=== PATIENT | female | born 1965 | race American Indian/Alaskan Native ===

== ENCOUNTER 2017-08-06 23:58 | Emergency (ER) | payer OTHER ==
--- NOTE | 2017-08-07 01:20 | XRay Report ---
FINAL REPORT EXAM: XR FEMUR 2+V LT HISTORY: fall with pain TECHNIQUE: Four views of the left femur were submitted. FINDINGS: There is no evidence of fracture or dislocation. The hip and knee joints appear well maintained. The soft tissues are unremarkable. IMPRESSION: No evidence of acute injury.
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
[2017-08-07] MEDS ORDERED: TYLENOL PO ONE (05:50)
[2017-08-07] MEDS ORDERED: BOOSTRIX IM ONE (05:51)
[2017-08-07 06:35] VITALS: BP 108/52
== END 2017-08-07 06:16 | disposition home or self-care (01) ==
LOC: ED 23:58
DX: S73.102A Unspecified sprain of left hip, initial encounter (principal); E11.9 Type 2 diabetes mellitus without complications; W18.30XA Fall on same level, unspecified, initial encounter; Y93.89 Activity, other specified; Y92.481 Parking lot as the place of occurrence of the external cause; Y99.8 Other external cause status
CPT/HCPCS: 90471; 90715; 99284

== ENCOUNTER 2018-02-25 17:46 | Emergency (ER) | payer OTHER ==
[2018-02-25 17:53] VITALS: BP 150/72
[2018-02-25] MEDS ORDERED: MOTRIN PO ONE (20:15)
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
--- NOTE | 2018-02-25 21:46 | XRay Report ---
FINAL REPORT PROCEDURE: XR HUMERUS 2+V LT TECHNIQUE: LEFT humerus radiographs, AP and lateral views. HISTORY: left arm pain COMPARISON: No prior studies are available for comparison. FINDINGS: Fracture (s) and/or Dislocation(s): None . Joint space(s): Normal. Soft tissues: Normal. Bone mineralization: Normal. Foreign bodies: None. IMPRESSION: Normal Examination.
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
== END 2018-02-25 22:28 | disposition home or self-care (01) ==
LOC: ED 17:46
DX: S46.911A Strain of unspecified muscle, fascia and tendon at shoulder and upper arm level, right arm, initial encounter (principal); S46.912A Strain of unspecified muscle, fascia and tendon at shoulder and upper arm level, left arm, initial encounter; S13.4XXA Sprain of ligaments of cervical spine, initial encounter; E11.9 Type 2 diabetes mellitus without complications; Z86.2 Personal history of diseases of the blood and blood-forming organs and certain disorders involving the immune mechanism; V89.2XXA Person injured in unspecified motor-vehicle accident, traffic, initial encounter; Y93.89 Activity, other specified; Y92.488 Other paved roadways as the place of occurrence of the external cause; Y99.8 Other external cause status
CPT/HCPCS: 72040; 99283

== ENCOUNTER 2019-03-17 10:14 | Emergency (ER) | payer OTHER ==
[2019-03-17 10:21] VITALS: BP 132/74
[2019-03-17] MEDS ORDERED: LIDOCAINE 2% UROJECT 10 ML JELLY UR ONE (12:37)
--- NOTE | 2019-03-17 12:38 | Emergency Department Report ---
ED Female HPI - General Chief complaint: Urogenital-Female Stated complaint: LFT SIDE VAGINAL CYST/BOIL/PAIN Time Seen by Provider: 03/17/19 11:29 Source: patient Mode of arrival: Ambulatory Limitations: No Limitations - History of Present Illness Initial comments: This is a 54-year-old -[place] female who presents to the emergency room with the painful abscess to left labia for 5 days. Patient states she is doing warm soaks with no improvement of symptoms. She denies drainage, fever, chills, vaginal discharge, pelvic pain, urinary frequency, urgency, dysuria, or hematuria. MD Complaint: other (abscess of left labia) Onset/Timin -: days(s) Location: labia Severity: severe Severity scale (0 -10): 10 Quality: aching Consistency: constant Improves with: none Worsens with: other (sitting) Are you Now?: No Associated Symptoms: denies other symptoms - Related Data Sexually active: No Previous Rx's Medication Instructions Recorded Last Taken Type Acetaminophen [Acetaminophen TAB] 500 mg PO Q6HR PRN #20 tablet 08/07/17 Unknown Rx Bacitracin Zinc Oint [Antibiotic 1 applicatio TP BID #1 tube 08/07/17 Unknown Rx Oint] Acetaminophen 500 mg PO Q8H PRN #20 tablet 02/25/18 Unknown Rx Cyclobenzaprine [Flexeril] 10 mg PO QHS PRN #10 tablet 02/25/18 Unknown Rx Ibuprofen [Motrin 800 MG tab] 800 mg PO Q8HR PRN #20 tablet 03/17/19 Unknown Rx Sulfamethoxazole/Trimethoprim 1 each PO BID #14 tablet 03/17/19 Unknown Rx [Bactrim DS TAB] traMADol [Ultram 50 MG tab] 50 mg PO Q6HR PRN #10 tablet 03/17/19 Unknown Rx Allergies Allergy/AdvReac Type Severity Reaction Status Date / Time No Known Allergies Allergy Verified 02/25/18 17:51 ED Review of Systems ROS: Stated complaint: LFT SIDE VAGINAL CYST/BOIL/PAIN Other details as noted in HPI Constitutional: denies: chills, fever Respiratory: denies: cough, shortness of breath, wheezing Cardiovascular: denies: chest pain, palpitations Gastrointestinal: denies: abdominal pain, nausea, diarrhea Genitourinary: denies: urgency, dysuria, discharge Skin: lesions (painful abscess of left labia). denies: rash Neurological: denies: headache, weakness, paresthesias Psychiatric: denies: anxiety, depression ED Past Medical Hx - Past Medical History Previous Medical History?: No Hx Diabetes: Yes ([facility] diabetes) Additional medical history: aniemia - Surgical History Hx Appendectomy: Yes Additional Surgical History: utrine embolzation - Social History Smoking Status: Never Smoker Substance Use Type: None - Medications Home Medications: Home Medications Medication Instructions Recorded Confirmed Last Taken Type Acetaminophen [Acetaminophen TAB] 500 mg PO Q6HR PRN #20 tablet 08/07/17 Unknown Rx Bacitracin Zinc Oint [Antibiotic 1 applicatio TP BID #1 tube 08/07/17 Unknown Rx Oint] Acetaminophen 500 mg PO Q8H PRN #20 tablet 02/25/18 Unknown Rx Cyclobenzaprine [Flexeril] 10 mg PO QHS PRN #10 tablet 02/25/18 Unknown Rx Ibuprofen [Motrin 800 MG tab] 800 mg PO Q8HR PRN #20 tablet 03/17/19 Unknown Rx Sulfamethoxazole/Trimethoprim 1 each PO BID #14 tablet 03/17/19 Unknown Rx [Bactrim DS TAB] traMADol [Ultram 50 MG tab] 50 mg PO Q6HR PRN #10 tablet 03/17/19 Unknown Rx ED Physical Exam - General Limitations: No Limitations General appearance: alert, in no apparent distress, obese - Respiratory Respiratory exam: Present: normal lung sounds bilaterally. Absent: respiratory distress - Cardiovascular Cardiovascular Exam: Present: regular rate, normal rhythm. Absent: systolic murmur, diastolic murmur, rubs, gallop - GI/Abdominal GI/Abdominal exam: Present: soft, normal bowel sounds. Absent: distended, tenderness, guarding, rebound, rigid - External exam: Present: lesions (firm erythematous swelling at vaginal introitus, at 5:00, tenderness). Absent: bleeding - Neurological Exam Neurological exam: Present: alert, oriented X3 - Psychiatric Psychiatric exam: Present: normal affect, normal mood - Skin Skin exam: Present: warm, dry, intact, normal color. Absent: rash ED Course Vital Signs 03/17/19 10:19 Temperature 98.1 F Pulse Rate 96 H Respiratory 20 Rate Blood Pressure 132/74 O2 Sat by Pulse 98 Oximetry - I & D Left Vagina Type of Procedure: Simple Site: left labia majora Blade Size: 11 I & D Procedure: betadine prep, sterile drapes applied, sterile dressing applied Progress: The area was prepared and draped in the usual, sterile manner. The site was anesthetized with 2% lidocaine without epinephrine. A linear incision along the local skin lines was made and the purulent material expressed. The abcess was explored thoroughly and sequestered pockets were opened. Bleeding was minimal. Packing: idodoform Followup: The patient tolerated the procedure well without complications. Standard post-procedure care was explained and return precautions are given. ED Medical Decision Making - Medical Decision Making Patient is stable and examined by me. Denies prior history of Bartholin abscess or cyst. No acute signs of distress noted. I&D refer to note. Discussed plan to start bactrim DS, tramadol, and ibuprofen with patient. Educated patient on follow up plan to have packing removed and wound reassessed in 2-3 days. Patient agrees to ED plan of care. Discharged home and follow up with PCP in 2-3 days. Critical care attestation.: If time is entered above; I have spent that time in minutes in the direct care of this critically ill patient, excluding procedure time. ED Disposition Clinical Impression: Abscess of Bartholin's gland Disposition: TO HOME OR SELFCARE Is pt being admited?: No Condition: Stable Instructions: Abscess (ED), Incision and Drainage (ED) Additional Instructions: Keep packing in place for 2-3 days. Return to ER or f/u with PCP to have packing removed and wound reassessed. Complete full round of bactrim DS antibiotic as prescribed. Follow up with PCP or ER in 2-3 days. Return to ER if foul smelling discharge, swelling, or severe pain to wound. Prescriptions: Sulfamethoxazole/Trimethoprim [Bactrim DS TAB] 1 each PO BID #14 tablet Ibuprofen [Motrin 800 MG tab] 800 mg PO Q8HR PRN #20 tablet PRN Reason: Pain , Severe (7-10) traMADol [Ultram 50 MG tab] 50 mg PO Q6HR PRN #10 tablet PRN Reason: Pain Referrals: ROLDAN BENITEZ MD [Primary Care Provider] - 3-5 Days [facility] [Outside] - 3-5 Days [facility] [Outside] - 3-[address] [facility] [Outside] - 3-5 Days Forms: Work/School Release Form(ED) Time of Disposition: 14:31
[2019-03-17] MEDS ORDERED: LIDOCAINE (1%) 10 MG/1 ML VIAL 20 ML MDV INFILTRATI ONE (12:53)
== END 2019-03-17 14:37 | disposition home or self-care (01) ==
LOC: ED 10:14
DX: N75.1 Abscess of Bartholin's gland (principal); E11.9 Type 2 diabetes mellitus without complications; Z90.89 Acquired absence of other organs

== ENCOUNTER 2019-03-20 14:25 | Emergency (ER) | payer SELFPAY ==
--- NOTE | 2019-03-20 14:41 | Emergency Department Report ---
Blank Doc - Documentation Documentation: 54-year-old female that presents with bartholin abscess packing removal. This initial assessment/diagnostic orders/clinical plan/treatment(s) is/are subject to change based on patient's health status, clinical progression and re- assessment by fellow clinical providers in the ED. Further treatment and workup at subsequent clinical providers discretion. Patient/guardians urged not to elope from the ED as their condition may be serious if not clinically assessed and managed. Initial orders include: 1- Patient sent to [facility] for further evaluation and treatment
[2019-03-20 14:44] VITALS: BP 128/70
--- NOTE | 2019-03-20 15:48 | Emergency Department Report ---
ED Recheck HPI - General Chief Complaint: Laceration/Recheck/Suture Stated Complaint: PACKING REMOVAL Time Seen by Provider: 03/20/19 14:40 Source: patient Mode of arrival: Ambulatory Limitations: No Limitations - History of Present Illness MD Complaint: wound re-check, other (packing removal) Onset/Timin -: days(s) Initial Visit For: abscess Returns Today for: wound recheck Symptoms Since Prior Visit: no new symptoms Context: planned re-check Associated Symptoms: none Treatments Prior to Arrival: dressings, Given Antibiotics on, Given Pain Meds on - Related Data Previous Rx's Medication Instructions Recorded Last Taken Type Acetaminophen [Acetaminophen TAB] 500 mg PO Q6HR PRN #20 tablet 08/07/17 Unknown Rx Bacitracin Zinc Oint [Antibiotic 1 applicatio TP BID #1 tube 08/07/17 Unknown Rx Oint] Acetaminophen 500 mg PO Q8H PRN #20 tablet 02/25/18 Unknown Rx Cyclobenzaprine [Flexeril] 10 mg PO QHS PRN #10 tablet 02/25/18 Unknown Rx Ibuprofen [Motrin 800 MG tab] 800 mg PO Q8HR PRN #20 tablet 03/17/19 Unknown Rx Sulfamethoxazole/Trimethoprim 1 each PO BID #14 tablet 03/17/19 Unknown Rx [Bactrim DS TAB] traMADol [Ultram 50 MG tab] 50 mg PO Q6HR PRN #10 tablet 03/17/19 Unknown Rx Allergies Allergy/AdvReac Type Severity Reaction Status Date / Time No Known Allergies Allergy Verified 02/25/18 17:51 ED Review of Systems ROS: Stated complaint: PACKING REMOVAL Other details as noted in HPI Constitutional: denies: chills, fever Respiratory: denies: cough, shortness of breath, wheezing Cardiovascular: denies: chest pain, palpitations Skin: other (packing in left labia wound). denies: rash, lesions Neurological: denies: headache, weakness, paresthesias Psychiatric: denies: anxiety, depression ED Past Medical Hx - Past Medical History Hx Diabetes: Yes ([facility] diabetes) Additional medical history: aniemia - Surgical History Hx Appendectomy: Yes Additional Surgical History: utrine embolzation - Social History Smoking Status: Never Smoker Substance Use Type: Alcohol - Medications Home Medications: Home Medications Medication Instructions Recorded Confirmed Last Taken Type Acetaminophen [Acetaminophen TAB] 500 mg PO Q6HR PRN #20 tablet 08/07/17 Unk nown Rx Bacitracin Zinc Oint [Antibiotic 1 applicatio TP BID #1 tube 08/07/17 Unknown Rx Oint] Acetaminophen 500 mg PO Q8H PRN #20 tablet 02/25/18 Unknown Rx Cyclobenzaprine [Flexeril] 10 mg PO QHS PRN #10 tablet 02/25/18 Unknown Rx Ibuprofen [Motrin 800 MG tab] 800 mg PO Q8HR PRN #20 tablet 03/17/19 Unknown Rx Sulfamethoxazole/Trimethoprim 1 each PO BID #14 tablet 03/17/19 Unknown Rx [Bactrim DS TAB] traMADol [Ultram 50 MG tab] 50 mg PO Q6HR PRN #10 tablet 03/17/19 Unknown Rx ED Physical Exam - General Limitations: No Limitations General appearance: alert, in no apparent distress - Respiratory Respiratory exam: Present: normal lung sounds bilaterally. Absent: respiratory distress - Cardiovascular Cardiovascular Exam: Present: regular rate, normal rhythm. Absent: systolic murmur, diastolic murmur, rubs, gallop - External exam: Present: lesions (left labia majora packing in place.). Absent: erythema, swelling, lacerations, ecchymosis, bleeding - Neurological Exam Neurological exam: Present: alert, oriented X3 - Psychiatric Psychiatric exam: Present: normal affect, normal mood - Skin Skin exam: Present: warm, dry, intact, normal color. Absent: rash ED Course Vital Signs 03/20/19 14:43 Temperature 98.2 F Pulse Rate 83 Respiratory 20 Rate Blood Pressure 128/70 [Right] O2 Sat by Pulse 97 Oximetry ED Recheck MDM - Differential Diagnosis Wound Recheck - Medical Decision Making Patient was seen by this provider and stable. Vitals are normal. Packing removed with iron forceps from left labia majora area wound from I&D 3 days ago. Patient tolerated well. Denies new symptoms. Wound is rolling machine tender to touch. Cleaned with normal saline and sterile 4 x 4 gauze dressing applied. Patient instructed to complete antibiotics and to continue taking pain medication prescribed on prior visit. Patient discharged home stable. Critical care attestation.: If time is entered above; I have spent that time in minutes in the direct care of this critically ill patient, excluding procedure time. ED Disposition Clinical Impression: Abscess packing removal Disposition: [id number] TO HOME OR SELFCARE Is pt being admited?: No Condition: Stable Instructions: Acute Wound Care (ED), [place] (GEN) Referrals: [facility] [Outside] - 3-5 Days [facility] [Outside] - 3-5 Days [facility] [Outside] - 3-5 Days Forms: Work/School Release Form(ED) Time of Disposition: 15:53
== END 2019-03-20 15:55 | disposition home or self-care (01) ==
LOC: ED 14:25
DX: Z48.01 Encounter for change or removal of surgical wound dressing (principal)